=== PATIENT | female | born 1985 | race Caucasian/White ===

== ENCOUNTER → 2016-11-24 | Outpatient (CLI) | payer BC ==
[2016-11-24 09:30] LABS: CH 29.7; CHCM 31.3; HCT 33.4 % (34.0-46.0); HDW 2.38; HGB 10.8 gm/dL (11.4-16.0); Hypochromasia Slight; MCH 30.9 pg (25.0-35.0); MCHC 32.3 g/dL (31.0-37.0); MCV 95.7 fL (80.0-100.0); Mean Platelet Volume 7.9; RBC 3.49 m/uL (3.80-5.40); RDW 13.9 % (11.5-15.5); WBC 10.7 k/uL (3.8-10.6)
== END | disposition home or self-care (01) ==
LOC: LABWHC1 07:55
PROVIDERS: ATTEND Obstetrics & Gynecology
DX: Z34.02 Encounter for supervision of normal first pregnancy, second trimester (principal); Z3A.00 Weeks of gestation of pregnancy not specified
CPT/HCPCS: 36415; 82950; 85027; 86850

== ENCOUNTER 2017-03-12 16:45 | Inpatient (IN) | payer BC ==
[2017-03-12] MEDS ORDERED: CARBOPROST TROMETHAMINE 250 MCG/ML 1 ML AMP IM PRN (16:52)
[2017-03-12] MEDS ORDERED: OXYTOCIN 10 UNIT/ML 1 ML VIAL IM PRN (16:52)
[2017-03-12] MEDS ORDERED: TERBUTALINE 1 MG/ML VIAL SQ PRN (16:52)
[2017-03-12] MEDS ORDERED: LIDOCAINE 1% (PF) 10 MG/ML (30 ML SDV) SQ PRN (16:52)
[2017-03-12] MEDS ORDERED: METHYLERGONOVINE 0.2 MG/ML 1 ML AMP IM PRN (16:52)
[2017-03-12] MEDS ORDERED: LACTATED RINGERS 1,000 ML IV SCH ×3 (17:00→20:15)
[2017-03-12] MEDS ORDERED: CLINDAMYCIN 900 MG in DEXTROSE 5% IN WATER 50 ML IVPB STA ×2 (17:03)
[2017-03-12 17:28] VITALS: BMI 29.3
[2017-03-12 17:47] LABS: Basophils % (A) 0 %; CH 31.1; CHCM 33.4; Eosinophils # (A) 0.2 k/uL (0-0.7); Eosinophils % (A) 1 %; HCT 38.6 % (34.0-46.0); HDW 2.58; HGB 12.3 gm/dL (11.4-16.0); Luc # (Auto) 0.04; Luc % (Auto) 0; Lymphocytes # (A) 1.1 k/uL (1.0-4.8); Lymphocytes % (A) 6 %; MCHC 31.9 g/dL (31.0-37.0); Mean Platelet Volume 9.7; Monocytes # (A) 0.3 k/uL (0-1.0); Monocytes % (A) 2 %; Neutrophils # (A) 16.5 k/uL (1.3-7.7); Neutrophils % (A) 91 %; RBC 4.11 m/uL (3.80-5.40); RDW 14.4 % (11.5-15.5); WBC 18.1 k/uL (3.8-10.6); WBC (Perox) 18.78
--- NOTE | 2017-03-12 17:49 | P.HPOB ---
History of Present Illness H&P Date: 03/12/17 Chief Complaint: Contractions This patient is a pleasant 31-year-old 1 para 0 female estimated date of confinement 03/11/2017 estimated gestational age 40 and one sevenths weeks gestation who is admitted to labor and delivery with complaints of contractions. Patient is here earlier today was 4 cm dilated now 78 cm dilated on admission. care is per Dr. Delacruz. It appears to be uncomplicated. Review of Systems Constitutional: Denies chills, Denies fever Cardiovascular: Denies chest pain, Denies shortness of breath Respiratory: Denies cough Gastrointestinal: Reports heartburn Genitourinary: Reports Menstruation: Reports amenorrhea Musculoskeletal: Reports low back pain Past Medical History Past Medical History: No Reported History History of Any Multi-Drug Resistant Organisms: None Reported Additional Past Surgical History / Comment(s): d and c 2011 Past Anesthesia/Blood Transfusion Reactions: No Reported Reaction Past Psychological History: No Psychological Hx Reported Smoking Status: Never smoker Past Alcohol Use History: None Reported Past Drug Use History: None Reported - Past Family History Mother Family Medical History: Hypertension, Thyroid Disorder Medications and Allergies Home Medications Medication Instructions Recorded Confirmed Type Pnv,Calcium 72/Iron/Folic Acid 1 tab PO DAILY 12/23/16 03/12/17 History [ Plus Tablet] Allergies Allergy/AdvReac Type Severity Reaction Status Date / Time acetaminophen [From Vicodin] Allergy Unknown Verified 03/12/17 07:47 amoxicillin Allergy Unknown Verified 03/12/17 07:47 hydrocodone [From Vicodin] Allergy Unknown Verified 03/12/17 07:47 Exam - Vital Signs Vital signs: Vital Signs Temp Pulse Resp BP 03/12/17 16:58 98.2 F 73 18 138/72 Intake and Output 03/12/17 03/12/17 03/12/17 06:59 14:59 22:59 Other: Weight 77.564 kg Patient Weight 03/13/17 06:59 Weight 77.564 kg - OBG Physical Exam Abdomen: bowel sounds normal, no diffuse tenderness, no bruit present, no guarding noted, no hepatomegaly, no splenomegaly, no mass Vulva: both: normal Vagina: normal moisture, no discharge Cervix: no lesion (Cervix is 9 cm dilated completely effaced -1 station), no discharge Uterus: enlarged Results Renal blood work shows she is O negative, rubella immune, RPR nonreactive, hepatitis B negative, HIV nonreactive, group B strep was negative Glucola was normal. Assessment and Plan (1) Normal labor Narrative/Plan: This is a pleasant 31-year-old 1 para 0 female 40 and one sevenths weeks gestation in active labor. Plan is anticipate normal vaginal delivery. Status: Acute (2) Rh negative status during Status: Acute
[2017-03-12] MEDS ORDERED: ceFAZolin 2 GM in SODIUM CHLORIDE 0.9% 100 ML IVPB ONE (19:06)
[2017-03-12] MEDS ORDERED: LACTATED RINGERS 1,000 ML IV ONE (19:06)
[2017-03-12] MEDS ORDERED: CITRIC ACID-SODIUM CITRATE 15 ML CUP PO ONE (19:06)
[2017-03-12] MEDS ORDERED: MORPHINE SULFATE (PF) 0.3 MG/0.3 ML SYR ONE (19:19)
[2017-03-12] MEDS ORDERED: ONDANSETRON 4 MG/2 ML VIAL ONE (19:19)
[2017-03-12] MEDS ORDERED: NALBUPHINE 10 MG/ML AMPUL ONE (19:19)
[2017-03-12] MEDS ORDERED: OXYTOCIN 10 UNIT/ML 1 ML VIAL ONE (19:19)
[2017-03-12] MEDS ORDERED: KETOROLAC 30 MG/ML 1 ML VIAL ONE (19:19)
[2017-03-12] MEDS ORDERED: ONDANSETRON 4 MG/2 ML VIAL IVP PRN (19:44)
[2017-03-12] MEDS ORDERED: NALOXONE 0.4 MG/ML 1 ML VIAL IV PRN ×2 (19:44→20:01)
[2017-03-12] MEDS ORDERED: diphenhydrAMINE 50 MG/ML 1 ML VIAL IVP PRN ×2 (19:44→20:01)
[2017-03-12] MEDS ORDERED: METOCLOPRAMIDE 5 MG/ML 2 ML VIAL IVP PRN (19:44)
[2017-03-12] MEDS ORDERED: PROMETHAZINE INJ 6.25 MG in SODIUM CHLORIDE 0.9% 50 ML IVPB PRN (19:44)
[2017-03-12] MEDS ORDERED: MORPHINE SULFATE 4 MG/ML SYRINGE IVP PRN (19:44)
[2017-03-12] MEDS ORDERED: NALBUPHINE 10 MG/ML AMPUL IV PRN (19:44)
[2017-03-12] MEDS ORDERED: diphenhydrAMINE 25 MG CAP PO PRN (20:01)
[2017-03-12] MEDS ORDERED: ZOLPIDEM 5 MG TAB PO PRN (20:01)
[2017-03-12] MEDS ORDERED: Acetaminophen-Codeine 300-30mg TAB PO PRN ×2 (20:01)
[2017-03-12] MEDS ORDERED: ACETAMINOPHEN TAB 325 MG TAB PO PRN (20:01)
[2017-03-12] MEDS ORDERED: Rhogam IMMUNE GLOBULIN 1,500 UNIT/1 ML IM ONE (20:01)
[2017-03-12] MEDS ORDERED: SIMETHICONE 80 MG CHEWABLE PO PRN (20:01)
[2017-03-12] MEDS ORDERED: LANOLIN CREAM 5 GM TUBE TOPICAL PRN (20:01)
--- NOTE | 2017-03-12 20:11 | P.OP ---
Date of Procedure: 03/12/17 Preoperative Diagnosis: #1: 40 and one sevenths week intrauterine . #2: Labor. #3: Cephalopelvic dystocia. #4: Poor maternal effort Postoperative Diagnosis: #1: Same. Procedure(s) Performed: Primary low transverse section Anesthesia: spinal Surgeon: Brad Oates Tile Classifier #1: Valerie Su Estimated Blood Loss (ml): 800 Pathology: other (Placenta) Condition: stable Disposition: floor Indications for Procedure: Please see dictated H&P for intimate details of this patient's admission. In brief summary this is a 31-year-old 1 para 0 female 40 and one sevenths weeks gestation admitted to labor and delivery in active labor. Patient is 9 cm dilated on admission. She has artificial rupture membranes for clear fluid. Patient does get complete pushes for approximately 1 hour without descent of the head. Despite multiple coaching efforts the patient also has very poor maternal effort and it is my feeling that continued efforts will not facilitate delivery. I discussed this with the patient and her partner and we elected to proceed with section for delivery at this time. Patient understands this surgery and risks including risks of infection, bleeding, possible injury to bowel, bladder, vessels, and other organs. She understands the risk of DVT and pulmonary embolism. All the patient's questions are answered and a written consent is obtained. Operative Findings: This was a vigorous viable male infant Apgars 8 and 9 delivery time is 1933 hrs. The placenta had a very short umbilical cord. Description of Procedure: This patient is taken to the operating room. She is already had a Yao catheter placed to straight drain. She is subsequently sat up and spinal anesthetic is administered without incident. With an adequate level of anesthesia she has abdominal prep and drape. Scalpels and taken a Pfannenstiel skin incision is made. A second scalpel is taken down to the fascia. The fascia scored with the scalpel. Fascia is then extended bilaterally using the Arredondo scissors. Fascia is then dissected off the rectus muscles sharply. Rectus muscles are and the peritoneum is identified and entered sharply. The peritoneal incision is extended superiorly and inferiorly without difficulty. Bladder blade is placed at this time. Metzenbaum scissors was then used to dissect the bladder peritoneum. A scalpels then taken and a low transverse uterine incision is then made. Using a hemostat I gently into the uterine cavity is loss of clear fluid. Uterine incision is extended bluntly. The is found to be in the transverse hospital presentation and delivered carefully up out of the pelvis. With fundal pressure we then have deliver the infant's head and the rest this infant's body. Mouth and nares are bulb suctioned for clear fluid. This is a vigorous viable male Apgars are 8 and 9 delivery time is 1933 hrs. After delivery of the the umbilical cord is doubly clamped and cut as previously noted the umbilical cord was very short. The placenta is then manually extracted intact. Uterus is then externalized. Latter blade is replaced. Uterine incision demarcated with Gibbs clamps and then closed using 0 Vicryl running locked fashion 2 layers. Bladder peritoneum was then reapproximated using a 3-0 Vicryl. Excess fluid is removed from the abdomen and pelvis. There is a small paratubal cyst on the left fallopian tube which is drained. Uterus placed back into the abdomen. The parietal peritoneum was then closed using an 0 Vicryl suture. The rectus muscles are reapproximated in 0 Vicryl interrupted fashion. Fascia is then closed using 0 PDS in a running fashion. Fascial incision is intact and hemostatic. Subcutaneous tissues then inspected and closed using a 3-0 Vicryl. Skin is and closed using mo. All counts are correct 3. There are no complications. Cord blood was obtained for Rh status. and mother taken the birthing suite in satisfactory condition.
[2017-03-12] MEDS ORDERED: OXYTOCIN 20 UNITS/1000 ML NS 1,000 ML IV SCH (20:15)
[2017-03-13] MEDS ORDERED: CLINDAMYCIN 900 MG in DEXTROSE 5% IN WATER 50 ML IVPB SCH ×2 (01:00)
[2017-03-13] MEDS: KETOROLAC 30 MG/ML 1 ML VIAL IVP PRN ×3 (03:53→20:17)
[2017-03-13] MEDS: ceFAZolin 2 GM in SODIUM CHLORIDE 0.9% 100 ML IVPB SCH ×2 (03:53→13:36)
[2017-03-13 04:14] LABS: Basophils % (A) 0 %; CH 31.3; CHCM 33.4; Eosinophils # (A) 0.1 k/uL (0-0.7); Eosinophils % (A) 1 %; HCT 34.6 % (34.0-46.0); HDW 2.57; HGB 11.2 gm/dL (11.4-16.0); Luc # (Auto) 0.09; Luc % (Auto) 0; Lymphocytes # (A) 1.4 k/uL (1.0-4.8); Lymphocytes % (A) 6 %; MCH 30.5 pg (25.0-35.0); MCHC 32.4 g/dL (31.0-37.0); MCV 94.4 fL (80.0-100.0); Monocytes # (A) 0.8 k/uL (0-1.0); Monocytes % (A) 4 %; Neutrophils # (A) 18.7 k/uL (1.3-7.7); Neutrophils % (A) 89 %; RBC 3.67 m/uL (3.80-5.40); RDW 14.5 % (11.5-15.5); WBC 21.1 k/uL (3.8-10.6)
--- NOTE | 2017-03-13 07:26 | P.PNOBGPC ---
Subjective - Subjective Patient reports: Reports appetite normal, Reports voiding normally, Reports pain well controlled, Reports ambulating normally : doing well Objective - Vital Signs Latest vital signs: Vital Signs Temp Pulse Resp BP Pulse Ox 03/13/17 04:00 98.4 F 73 16 112/69 97 03/13/17 00:08 98 03/13/17 00:00 98.8 F 65 16 109/70 98 03/12/17 22:18 96.1 F L 59 L 16 108/73 98 03/12/17 21:30 96.1 F L 63 16 106/66 97 03/12/17 21:02 86 16 111/58 97 03/12/17 20:45 97.6 F 90 16 104/55 98 03/12/17 20:44 98 03/12/17 20:30 94 18 104/57 98 03/12/17 20:18 97.7 F 94 18 99/57 98 03/12/17 20:00 96.3 F L 100 16 91/53 99 03/12/17 16:58 98.2 F 73 18 138/72 Intake and Output 03/12/17 03/13/17 03/13/17 22:59 06:59 14:59 Intake Total 1100 1100 Output Total 1000 500 Balance 100 600 Intake: Intake, IV Titration 1100 1100 Amount Lactated Ringers 1,000 ml 1000 @ 125 mls/hr IV .Q8H ISABEL Rx#:[id number] Oxytocin 20 Units/1000 ml 1000 Ns 1,000 ml @ Per Protocol IV .Q0M ISABEL Rx#: [id number] ceFAZolin 2 gm In Sodium 100 100 Chloride 0.9% 100 ml @ 100 mls/hr IVPB Q8H ISABEL Rx#:[id number] Output: Urine 400 500 Estimated Blood Loss 600 Other: Voiding Method Indwelling Catheter Indwelling Catheter Weight 77.564 kg - Exam Lungs: bilateral: normal Chest: Normal S1, Normal S2 Extremities: Present: normal Abdomen: Present: normal appearance, soft. Absent: distention, tenderness Incision: Present: normal, dry, intact Uterus: Present: normal, firm - Labs Labs: Abnormal Lab Results - Last 24 Hours (Table) 03/12/17 03/13/17 Range/Units 17:40 03:55 WBC 18.1 H 21.1 H (3.8-10.6) k/uL RBC 3.67 L (3.80-5.40) m/uL Hgb 11.2 L (11.4-16.0) gm/dL Neutrophils # 16.5 H 18.7 H (1.3-7.7) k/uL Assessment and Plan (1) Normal labor Narrative/Plan: Post operative day #1. Patient is resting without complaints. Vital signs are stable and she is afebrile. Her incision is intact and dry. My impression is that this is a normal postoperative course. Plan is to allow the patient to shower, check CBC, advanced to regular diet, encourage ambulation. Current Visit: Yes Status: Acute Code(s): O80 - ENCOUNTER FOR FULL-TERM UNCOMPLICATED DELIVERY; Z37.9 - OUTCOME OF DELIVERY, UNSPECIFIED SNOMED Code(s ): 94321211 (2) Rh negative status during Current Visit: Yes Status: Acute Code(s): O09.899 - SUPERVISION OF OTHER HIGH RISK PREGNANCIES, UNSP TRIMESTER SNOMED Code(s): 630813938
[2017-03-13] MEDS: SENNOSIDES-DOCUSATE SODIUM 1 EACH TAB PO SCH ×2 (09:09→20:17)
--- NOTE | 2017-03-13 13:46 | P.PN ---
Progress Note - Text Date:03/13 Time:926am Patient is status post . Patient seen this morning with VAS score of 2. c/o of pruritus, no c/o nausea/vomiting, comfortable and doing well.
[2017-03-14] MEDS: IBUPROFEN 600 MG TAB PO PRN ×2 (01:30→06:58)
[2017-03-14 07:58] VITALS: BP 114/60; PULSE 79; RESP 16; TEMP 98.1
--- NOTE | 2017-03-14 09:39 | P.DS ---
Providers Date of admission: 03/12/17 16:55 Expected date of discharge: 03/14/17 Attending physician: Yara Delacruz Primary care physician: Brad Oates - Discharge Diagnosis(es) (1) Status post primary low transverse section Current Visit: Yes Status: Acute Hospital Course: Pt presented in labor and underwent a primary low transverse for heart tones. Her post op course was uncomplicated. She is tolerating a regular diet, passing flatus, voiding and ambulating without difficulty. She will be discharged home PPD #2 in stable condition to follow up with me in 1 week. Plan - Discharge Summary New Discharge Prescriptions: New Acetaminophen-Codeine 300-30mg [Tylenol w/codeine #3] 2 each PO Q4HR PRN #30 tab PRN Reason: Moderate To Severe Pain Ibuprofen [Motrin] 600 mg PO Q6HR PRN #30 tab PRN Reason: Mild Pain Or Fever >= 100.5 No Action Pnv,Calcium 72/Iron/Folic Acid [ Plus Tablet] 1 tab PO DAILY Discharge Medication List Pnv,Calcium 72/Iron/Folic Acid [ Plus Tablet] 1 tab PO DAILY 12/23/16 [ History] Acetaminophen-Codeine 300-30mg [Tylenol w/codeine #3] 2 each PO Q4HR PRN #30 tab 03/14/17 [Rx] Ibuprofen [Motrin] 600 mg PO Q6HR PRN #30 tab 03/14/17 [Rx] Follow up Appointment(s)/Referral(s): Yara Delacruz DO [Doctor of Osteopathic Medicine] - 1 Week
== END 2017-03-14 14:00 | disposition home or self-care (01) | DRG 765 ==
LOC: FBPOP 16:45 → 4FBP 16:55
PROVIDERS: ADMIT Obstetrics & Gynecology; ATTEND Obstetrics & Gynecology
PROC: 10D00Z1 Extraction of Products of Conception, Low, Open Approach (ICD-10-PCS; principal; 2017-03-12 19:00)
PROC: 10907ZC Drainage of Amniotic Fluid, Therapeutic from Products of Conception, Via Natural or Artificial Opening (ICD-10-PCS; principal; 2017-03-12 19:00)
DX: O65.9 Obstructed labor due to maternal pelvic abnormality, unspecified (principal); O36.0930 Maternal care for other rhesus isoimmunization, third trimester, not applicable or unspecified; O48.0 Post-term pregnancy; Z88.1 Allergy status to other antibiotic agents; Z37.0 Single live birth; Z3A.40 40 weeks gestation of pregnancy; Z88.6 Allergy status to analgesic agent; Z88.5 Allergy status to narcotic agent
CPT/HCPCS: 59025; 85025; 86850; 86900; 86901; 88307; 99213

== ENCOUNTER → 2020-12-31 | Outpatient (CLI) | payer OTHER ==
--- NOTE | 2021-01-01 03:22 | MR ---
EXAMINATION TYPE: MR brain and iac wo/w con DATE OF EXAM: 12/31/2020 COMPARISON: 10/06/2011 HISTORY: vertigo, hearing loss, tinnitus for many years CONTRAST: Standard multiplanar, multisequence MRI departmental protocol utilizing 7ml mL intravenous Gadavist g adolinium contrast. Ventricles and sulci appear normal. There is no mass effect nor midline shift. There is no sign of in tracranial hemorrhage. Corpus callosum appears intact. Brainstem is intact. Diffusion images show no evidence of an acute infarct. Genao-white matter structures have fairly normal signal pattern. There is no evidence of cerebral eder a. There is normal signal pattern of the temporal bones. The internal auditory canals appear normal. The acoustic nerve and vestibular nerves appear normal. T here is no evidence of cerebellopontine angle mass. The cochlea and semicircular canals appear intact . I see no focal bone destruction. The contrast images show no pathologic enhancement. There is normal enhancement of the venous sinuses . The optic chiasm appears normal. Pituitary stalk is in the midline. There is no evidence of a sellar mass. The cerebellar tonsils project very slightly into the foramen magnum. IMPRESSION: Brain has normal signal pattern. No evidence of abnormality to explain tinnitus. The cerebellar tonsi ls project slightly into the foramen magnum similar to old exam.
== END | disposition home or self-care (01) ==
LOC: RADMRIMAIN 19:26
PROVIDERS: ATTEND Otolaryngology Otolaryngology/Facial Plastic Surgery
DX: R42 Dizziness and giddiness (principal); H91.90 Unspecified hearing loss, unspecified ear; H93.19 Tinnitus, unspecified ear
CPT/HCPCS: 70553; A9585